=== PATIENT | male | born 1930 | race Asian ===

== ENCOUNTER 2017-03-15 06:52 | Emergency (ER) | payer MEDICARE, OTHER ==
[~2017-03-15] VITALS: Ht 160 cm; Wt 105.0 kg
[2017-03-15] MEDS ORDERED: FURO20 PO (07:02)
[2017-03-15] MEDS ORDERED: FAMO20 PO (07:02)
[2017-03-15] MEDS ORDERED: HYDR10TA31 PO (07:02)
[2017-03-15] MEDS ORDERED: ASPI81 PO (07:02)
[2017-03-15] MEDS ORDERED: ATOR10TA84 PO (07:02)
[2017-03-15] MEDS ORDERED: OS500 PO (07:02)
[2017-03-15 08:10] VITALS: BP 167/62
== END 2017-03-15 08:36 | disposition home or self-care (01) ==
LOC: EMS 06:53
DX: R04.0 Epistaxis (principal); I11.0 Hypertensive heart disease with heart failure; I50.9 Heart failure, unspecified; E78.00 Pure hypercholesterolemia, unspecified
CPT/HCPCS: 99283

== ENCOUNTER 2017-03-17 09:30 | Emergency (ER) | payer MEDICARE, OTHER ==
[~2017-03-17] VITALS: Ht 160 cm; Wt 56.8 kg
[~2017-03-17 09:30] MED LIST: ASPI81 PO; ATOR10TA84 PO; FAMO20 PO; FURO20 PO; HYDR10TA31 PO; OS500 PO
[2017-03-17] MEDS ORDERED: OXYMETAZOLINE HCL 0.05% 15 ML NASAL SPRAY NASAL ONE (11:30)
[2017-03-17 11:42] VITALS: BP 129/57
== END 2017-03-17 12:20 | disposition home or self-care (01) ==
LOC: EMS 09:31
DX: R04.0 Epistaxis (principal); I11.0 Hypertensive heart disease with heart failure; I50.9 Heart failure, unspecified; E78.00 Pure hypercholesterolemia, unspecified
CPT/HCPCS: 99282